=== PATIENT | female | born 1945 | race Caucasian/White ===

== ENCOUNTER 2017-05-18 06:26 | Day surgery (SDC) | payer MEDICARE, MEDICAID ==
[2017-05-18 06:44] VITALS: BMI 31.3
[2017-05-18] MEDS ORDERED: Propofol 10 mg/ml Inj (20 ML) ONE ×2 (07:56)
[2017-05-18 08:35] VITALS: RESP 12; TEMP 97; O2SAT 100
[2017-05-18 09:39] VITALS: BP 165/74; PULSE 63
== END 2017-05-18 09:37 | disposition home or self-care (01) ==
LOC: C.ENDO 06:26
PROVIDERS: ATTEND Internal Medicine
DX: K29.70 Gastritis, unspecified, without bleeding (principal); K83.8 Other specified diseases of biliary tract; R14.0 Abdominal distension (gaseous); K59.09 Other constipation
CPT/HCPCS: 43231; 82948; 88305; 88313; 88342; J2001; J2704; J3010